=== PATIENT | male | born 1940 | race Caucasian/White ===

== ENCOUNTER 2020-09-21 10:32 | Emergency (ER) | payer MEDICARE, BC ==
--- NOTE | 2020-09-21 11:26 | EDM.PDOC ---
ED HPI GENERAL MEDICAL PROBLEM - General Chief Complaint: Gastrointestinal Problem Stated Complaint: COVID SYMPTOMS Time Seen by Provider: 09/21/20 11:05 Source of Information: Reports: Patient History Limitations: Reports: No Limitations - History of Present Illness INITIAL COMMENTS - FREE TEXT/NARRATIVE: 79-year-old male, usually healthy, has been struggling with diarrhea for 2 weeks, generalized malaise, and mild weakness. His is concerned that he may have Covid, he is concerned he may have diverticulitis as his brother just went through a similar syndrome and was diagnosed with diverticulitis. He has a small amount of local pain in the lower abdomen, that is intermittent, no fevers or chills, no blood in his diarrhea, no nausea or vomiting. Denies shortness of breath or cough. In general his chief complaint is generalized malaise, weakness, and persistent diarrhea for 2 weeks. Onset: Gradual Duration: Week(s): (2 weeks) Associated Symptoms: Reports: Loss of Appetite, Malaise, Weakness. Denies: Confusion, Chest Pain, Cough, Diaphoresis, Fever/Chills, Nausea/Vomiting - Related Data Allergies Allergy/AdvReac Type Severity Reaction Status Date / Time Penicillins Allergy Swelling Verified 09/21/20 10:44 Home Meds: Home Meds Aspirin 1 tab PO DAILY 09/21/20 [History] Losartan [Cozaar] 1 tab PO DAILY 09/21/20 [History] Metoprolol Tartrate 1 tab PO BID 09/21/20 [History] Niacin 1 tab PO DAILY 09/21/20 [History] atorvaSTATin [Lipitor] 1 tab PO DAILY 09/21/20 [History] cilostazoL [Cilostazol] 1 tab PO DAILY 09/21/20 [History] gemfibroziL [Gemfibrozil] 1 tab PO BID 09/21/20 [History] hydrALAZINE [Apresoline] 1 tab PO BID 09/21/20 [History] Past Medical History Cardiovascular History: Reports: Aneurysm, High Cholesterol, Hypertension - Past Surgical History Cardiovascular Surgical History: Reports: AAA Repair, Carotid Endarterectomy, Coronary Artery Stent, Vascular Surgery Social & Family History - Tobacco Use Tobacco Use Status *Q: Never Tobacco User ED ROS GENERAL - Review of Systems Review Of Systems: See Below Constitutional: Reports: Malaise, Decreased Appetite. Denies: Fever, Chills HEENT: Reports: No Symptoms Respiratory: Denies: Shortness of Breath Cardiovascular: Denies: Chest Pain GI/Abdominal: Reports: Abdominal Pain (Mild intermittent lower abdominal pain, especially on the left), Diarrhea (Watery diarrhea) Musculoskeletal: Reports: No Symptoms Skin: Reports: No Symptoms Neurological: Reports: Weakness. Denies: Dizziness, Headache ED EXAM, GENERAL - Physical Exam Exam: See Below Exam Limited By: No Limitations General Appearance: Alert, No Apparent Distress Eye Exam: Bilateral Eye: Normal Inspection (No jaundice, good hydration) Respiratory/Chest: No Respiratory Distress, Lungs Clear Cardiovascular: Regular Rate, Rhythm. No: Tachycardia GI/Abdominal: Normal Bowel Sounds, Soft, Tender (He does have some tenderness in the left lower quadrant but no guarding or rebound, tenderness is mild) Extremities: Normal Inspection. No: Pedal Edema Neurological: Alert, Oriented Psychiatric: Normal Affect, Normal Mood Skin Exam: Warm, Dry Course - Vital Signs Last Recorded V/S: Last Vital Signs Temp 98.7 F 09/21/20 10:56 Pulse 76 09/21/20 12:45 Resp 14 09/21/20 10:56 BP 137/77 09/21/20 12:45 Pulse Ox 98 09/21/20 10:56 - Orders/Labs/Meds Orders: Active Orders 24 hr Category Date Time Status CORONAVIRUS COVID-19, JAMES Stat Lab 09/21/20 11:43 Received CULTURE STOOL + SHIGATOX [RM] Stat Lab 09/21/20 13:09 Results Clostridium [CLOS DIFFICILE PCR W/REFLEX] [] Stat Lab 09/21/20 13:09 Results Labs: Laboratory Tests 09/21/20 09/21/20 Range/Units 11:25 11:25 WBC 2.7 L (4.5-11.0) K/uL RBC 4.91 (4.30-5.90) M/uL Hgb 13.0 (12.0-15.0) g/dL Hct 41.3 (40.0-54.0) % MCV 84 (80-98) fL MCH 27 (27-31) pg MCHC 32 (32-36) % Plt Count 146 L (150-400) K/uL Neut % (Auto) 78 H (36-66) % Lymph % (Auto) 15 L (24-44) % [place] % (Auto) 6 (2-6) % Eos % (Auto) 1 L (2-4) % Baso % (Auto) 0 (0-1) % Sodium 137 L (140-148) mmol/L Potassium 5.6 H (3.6-5.2) mmol/L Chloride 105 (100-108) mmol/L Carbon Dioxide 18 L (21-32) mmol/L Anion Gap 19.6 H (5.0-14.0) mmol/L BUN 92 H* D (7-18) mg/dL Creatinine 4.8 H* D (0.8-1.3) mg/dL Est Cr Clr Drug Dosing 13.10 mL/min Estimated GFR (MDRD) 12 L (>60) Glucose 130 H (74-106) mg/dL Calcium 8.8 (8.5-10.1) mg/dL Total Bilirubin 0.8 (0.2-1.0) mg/dL AST 43 H (15-37) U/L ALT 24 (12-78) U/L Alkaline Phosphatase 87 (46-116) U/L Total Protein 7.1 (6.4-8.2) g/dL Albumin 3.4 (3.4-5.0) g/dL Globulin 3.7 H (2.3-3.5) g/dL Albumin/Globulin Ratio 0.9 L (1.2-2.2) Meds: Medications Discontinued Medications Generic Name Dose Route Start Last Admin Trade Name Freq PRN Reason Stop Dose Admin Sodium Chloride 1,000 mls @ 500 mls/hr 09/21/20 11:30 09/21/20 11:33 Normal Saline IV 500 mls/hr ASDIRECTED HOLLY Administration Sodium Chloride 1,000 mls @ 1,000 mls/hr 09/21/20 13:15 09/21/20 13:14 Normal Saline IV 1,000 mls/hr ASDIRECTED HOLLY Administration - Re-Assessments/Exams Free Text/Narrative Re-Assessment/Exam: 09/21/20 11:27 CBC CMP a coronavirus testing was obtained, patient will be given some IV fluids while waiting results. We will also obtain a stool sample if possible. 09/21/20 12:13 White count is low, creatinine is 4.8 and BUN is elevated at 95. Past labs however revealed a creatinine of 2 4 years ago and GFR at 33. Potassium has been chronically elevated at 5.3 4 years ago and 6 years ago. It is 5.6 today. Awaiting a stool sample. 09/21/20 14:02 Patient remained comfortable in the ER, received 2 4 L of normal saline. Stool sample was obtained, light green diarrheal stool. WBCs were negative, C. difficile was negative. Culture is pending, although it is unlikely to grow anything significant without WBCs present. I recommended he start some probiotics on a regular basis pending his Covid test which should be back early next week. He then mentioned he has an appointment on Wednesday to talk to his doctor, it would be reasonable to recheck the creatinine and BUN as well as GFR at that time. I also think a colonoscopy should be scheduled if it has been more than 10 years. Departure - Departure Time of Disposition: 14:18 Disposition: Home, Self-Care Clinical Impression: Acute on chronic renal failure Qualifiers: Acute renal failure type: unspecified Chronic kidney disease stage: stage 4 (severe) Qualified Code(s): N17.9 - Acute kidney failure, unspecified Diarrhea Qualifiers: Diarrhea type: unspecified type Qualified Code(s): R19.7 - Diarrhea, unspecified - Discharge Information Instructions: Diarrhea, Adult Referrals: Jose Recio MD [Primary Care Provider] - Forms: ED Department Discharge Care Plan Goals: Replace natural bacteria with probiotics which can be bought at the drugstore or obtained in yogurt. Stay hydrated with water, and return for your recheck with your doctor on Wednesday as planned. It may be helpful to recheck your kidney function at that time. Return to the emergency room at any time if worsening such as difficulty breathing or increased pain. Sepsis Event Note (ED) - Evaluation Sepsis Screening Result: No Definite Risk - Focused Exam Vital Signs: Vital Signs Temp Pulse Resp BP Pulse Ox 09/21/20 12:45 76 137/77 09/21/20 10:56 98.7 F 71 14 114/66 98 - My Orders Last 24 Hours: My Active Orders 09/21/20 11:43 CORONAVIRUS COVID-19, JAMES Stat 09/21/20 13:09 CULTURE STOOL + SHIGATOX [RM] Stat Clostridium [CLOS DIFFICILE PCR W/REFLEX] [RM] Stat - Assessment/Plan Last 24 Hours: My Active Orders 09/21/20 11:43 CORONAVIRUS COVID-19, JAMES Stat 09/21/20 13:09 CULTURE STOOL + SHIGATOX [RM] Stat Clostridium [CLOS DIFFICILE PCR W/REFLEX] [RM] Stat
[2020-09-21] MEDS ORDERED: Sodium Chloride 0.9% 1,000 ML IV SCH ×2 (11:30→13:15)
== END 2020-09-21 14:20 | disposition home or self-care (01) ==
LOC: JP.ED 10:32
DX: N17.9 Acute kidney failure, unspecified (principal); I12.9 Hypertensive chronic kidney disease with stage 1 through stage 4 chronic kidney disease, or unspecified chronic kidney disease; E78.00 Pure hypercholesterolemia, unspecified; N18.4 Chronic kidney disease, stage 4 (severe); R19.7 Diarrhea, unspecified; Z88.0 Allergy status to penicillin; Z79.82 Long term (current) use of aspirin; Z79.899 Other long term (current) drug therapy
CPT/HCPCS: 36415; 80053; 85025; 87046; 87493; 87899; 89055; 99284; J7030; U0002

== ENCOUNTER 2020-09-22 14:40 | Emergency (ER) | payer MEDICARE, BC ==
--- NOTE | 2020-09-22 15:44 | EDM.PDOC ---
ED HPI GENERAL MEDICAL PROBLEM - General Chief Complaint: Respiratory Problem Stated Complaint: STRONGER COUGH SEEN 09/21/20 Time Seen by Provider: 09/22/20 15:10 Source of Information: Reports: Patient History Limitations: Reports: No Limitations - History of Present Illness INITIAL COMMENTS - FREE TEXT/NARRATIVE: 79-year-old male seen yesterday for persistent diarrhea and weakness, was given 2 L of fluid, check for Covid, and treated for acute kidney injury. After he went home he started developing a cough and shortness of breath which worsened overnight and today if he lays down he feels short of breath. No peripheral edema. No fevers or chills. He took 1 dose of the probiotics, still has some loose stools but not worse. No abdominal pain or chest pain. Onset: Gradual Duration: Day(s): (Shortness of breath for the past 12 hours) denies Pain Score (Numeric/FACES): 0 - Related Data Allergies Allergy/AdvReac Type Severity Reaction Status Date / Time Penicillins Allergy Swelling Verified 09/22/20 15:16 Home Meds: Home Meds Aspirin 1 tab PO DAILY 09/21/20 [History] Losartan [Cozaar] 1 tab PO DAILY 09/21/20 [History] Metoprolol Tartrate 1 tab PO BID 09/21/20 [History] Niacin 1 tab PO DAILY 09/21/20 [History] atorvaSTATin [Lipitor] 1 tab PO DAILY 09/21/20 [History] cilostazoL [Cilostazol] 1 tab PO DAILY 09/21/20 [History] gemfibroziL [Gemfibrozil] 1 tab PO BID 09/21/20 [History] hydrALAZINE [Apresoline] 1 tab PO BID 09/21/20 [History] L.acidoph,Paracasei, B.lactis [Probiotic] 1 each PO DAILY 09/22/20 [History] Past Medical History HEENT History: Reports: Hard of Hearing, Impaired Vision Cardiovascular History: Reports: Aneurysm, High Cholesterol, Hypertension Gastrointestinal History: Reports: Other (See Below) Other Gastrointestinal History: bleeding ulcer Hematologic History: Reports: Blood Transfusion(s) - Infectious Disease History Infectious Disease History: Reports: Chicken Pox - Past Surgical History Cardiovascular Surgical History: Reports: AAA Repair, Carotid Endarterectomy, Coronary Artery Stent, Vascular Surgery GI Surgical History: Reports: Colonoscopy Musculoskeletal Surgical History: Reports: Hip Replacement Social & Family History - Tobacco Use Tobacco Use Status *Q: Former Tobacco User Years of Tobacco use: 15 Packs/Tins Daily: 1 Used Tobacco, but Quit: Yes Month/Year Tobacco Last Used: 30 years ago Second Hand Smoke Exposure: No - Caffeine Use Caffeine Use: Reports: Coffee, Tea - Recreational Drug Use Recreational Drug Use: No ED ROS GENERAL - Review of Systems Review Of Systems: See Below Constitutional: Reports: Malaise. Denies: Fever, Chills HEENT: Denies: Throat Pain Respiratory: Reports: Shortness of Breath, Cough. Denies: Sputum Cardiovascular: Denies: Chest Pain, Palpitations GI/Abdominal: Reports: Diarrhea. Denies: Abdominal Pain, Nausea, Vomiting Skin: Reports: No Symptoms Psychiatric: Reports: Anxiety ED EXAM, GENERAL - Physical Exam Exam: See Below Exam Limited By: No Limitations General Appearance: Alert, No Apparent Distress, Anxious Head: Atraumatic Neck: Supple, Non-Tender Respiratory/Chest: Other (Patient now has fairly significant rales in the bases bilaterally) Cardiovascular: Regular Rate, Rhythm GI/Abdominal: Soft, Non-Tender Extremities: Normal Inspection. No: Pedal Edema Neurological: Alert, Oriented Psychiatric: Anxious Skin Exam: Warm, Dry Course - Vital Signs Last Recorded V/S: Last Vital Signs Temp 97.9 F 09/22/20 15:31 Pulse 87 09/22/20 17:52 Resp 22 H 09/22/20 15:31 BP 177/111 H 09/22/20 17:52 Pulse Ox 90 L 09/22/20 17:52 - Orders/Labs/Meds Labs: Laboratory Tests 09/22/20 09/22/20 09/22/20 Range/Units 15:45 15:45 15:45 WBC 3.6 L (4.5-11.0) K/uL RBC 4.72 (4.30-5.90) M/uL Hgb 12.6 (12.0-15.0) g/dL Hct 39.4 L (40.0-54.0) % MCV 84 (80-98) fL MCH 27 (27-31) pg MCHC 32 (32-36) % Plt Count 174 (150-400) K/uL Neut % (Auto) 88 H (36-66) % Lymph % (Auto) 6 L (24-44) % [place] % (Auto) 5 (2-6) % Eos % (Auto) 2 (2-4) % Baso % (Auto) 0 (0-1) % D-Dimer, Quantitative 1480 H (0.0-400.0) ng/mL Sodium (140-148) mmol/L Potassium (3.6-5.2) mmol/L Chloride (100-108) mmol/L Carbon Dioxide (21-32) mmol/L Anion Gap (5.0-14.0) mmol/L BUN (7-18) mg/dL Creatinine (0.8-1.3) mg/dL Est Cr Clr Drug Dosing mL/min Estimated GFR (MDRD) (>60) Glucose (74-106) mg/dL Calcium (8.5-10.1) mg/dL Ferritin (8-388) ng/ml C-Reactive Protein 11.65 H (0.0-0.3) mg/dL NT-Pro-B Natriuret Pep 1018 H (5-450) pg/mL SARS-CoV-2 RNA (JAMES) (NEGATIVE) 09/22/20 09/22/20 09/22/20 Range/Units 15:45 15:50 16:31 WBC (4.5-11.0) K/uL RBC (4.30-5.90) M/uL Hgb (12.0-15.0) g/dL Hct (40.0-54.0) % MCV (80-98) fL MCH (27-31) pg MCHC (32-36) % Plt Count (150-400) K/uL Neut % (Auto) (36-66) % Lymph % (Auto) (24-44) % [place] % (Auto) (2-6) % Eos % (Auto) (2-4) % Baso % (Auto) (0-1) % D-Dimer, Quantitative (0.0-400.0) ng/mL Sodium 140 (140-148) mmol/L Potassium 5.9 H (3.6-5.2) mmol/L Chloride 110 H (100-108) mmol/L Carbon Dioxide 15 L (21-32) mmol/L Anion Gap 20.9 H (5.0-14.0) mmol/L BUN 92 H* (7-18) mg/dL Creatinine 4.1 H* (0.8-1.3) mg/dL Est Cr Clr Drug Dosing 15.33 mL/min Estimated GFR (MDRD) 14 L (>60) Glucose 119 H (74-106) mg/dL Calcium 9.0 (8.5-10.1) mg/dL Ferritin 1205 H (8-388) ng/ml C-Reactive Protein (0.0-0.3) mg/dL NT-Pro-B Natriuret Pep (5-450) pg/mL SARS-CoV-2 RNA (JAMES) Positive H (NEGATIVE) Meds: Medications Discontinued Medications Generic Name Dose Route Start Last Admin Trade Name Freq PRN Reason Stop Dose Admin Dexamethasone 6 mg 09/22/20 17:26 09/22/20 17:37 Dexamethasone IVPUSH 09/22/20 17:27 6 mg ONETIME ONE Administration - Re-Assessments/Exams Free Text/Narrative Re-Assessment/Exam: 09/22/20 17:02 BMP was reordered, 2 view chest x-ray obtained. This does show vascular congestion or diffuse parenchymal infiltrate. No effusions. A Covid rapid test was obtained and the patient was supplemented with a small amount of oxygen as he tended to waver between 89 and 91 on room air and still had some mild shortness of breath. 09/22/20 17:02 CMP returned with a BUN still elevated at 92, creatinine somewhat better at 4.1 but potassium is now more elevated at 5.6. Covid test is pending. 09/22/20 17:32 Covid is positive, with his renal failure our hospitalist service felt uneasy treating him here. I talked with Estefani Soni and he kindly accepted the patient in transfer. He recommended 6 mg of IV dexamethasone which was given. Departure - Departure Time of Disposition: 17:50 Disposition: DC/Tfer to [facility] Clinical Impression: COVID-19 Acute on chronic renal failure Qualifiers: Acute renal failure type: unspecified Chronic kidney disease stage: stage 4 (severe) Qualified Code(s): N17.9 - Acute kidney failure, unspecified; N18.4 - Chronic kidney disease, stage 4 (severe) - Discharge Information Referrals: Jose Recio MD [Primary Care Provider] - Forms: ED Department Discharge Sepsis Event Note (ED) - Evaluation Sepsis Screening Result: Possible Sepsis Risk
[2020-09-22] MEDS ORDERED: Dexamethasone 4 MG/ML SDV IVPUSH ONE (17:26)
--- NOTE | 2020-09-23 10:30 | CR ---
CHEST: 2 view CLINICAL HISTORY:Dyspnea COMPARISON:2006 FINDINGS: Heart size and pulmonary vascularity are normal. There are atherosclerotic changes in the aorta. Patient has diffuse bilateral pulmonary infiltrates left greater than right. IMPRESSION: Diffuse bilateral pulmonary infiltrates most prominent in the left lower lobe
== END 2020-09-22 18:54 ==
LOC: JP.ED 14:40
DX: U07.1 COVID-19 (principal); I12.9 Hypertensive chronic kidney disease with stage 1 through stage 4 chronic kidney disease, or unspecified chronic kidney disease; N18.4 Chronic kidney disease, stage 4 (severe); N17.9 Acute kidney failure, unspecified; R79.89 Other specified abnormal findings of blood chemistry; E78.00 Pure hypercholesterolemia, unspecified; Z95.5 Presence of coronary angioplasty implant and graft; Z88.0 Allergy status to penicillin; Z79.82 Long term (current) use of aspirin; Z79.899 Other long term (current) drug therapy; Z87.891 Personal history of nicotine dependence; R06.02 Shortness of breath
CPT/HCPCS: 36415; 71046; 80048; 82728; 83880; 85025; 85379; 86140; 96374; 99285; J1100; U0002